=== PATIENT | female | born 1965 | race Caucasian/White ===

== ENCOUNTER 2020-04-15 15:16 | Outpatient (REF) | payer BC, SELFPAY ==
[2020-04-15 15:57] LABS: MANUAL DIFF FLAG NO
[2020-04-15 15:58] LABS: Basophils Absolute Auto 0.1 X10*3/uL (0.0-0.2); Basophils Percent Auto 0.7 % (0-2); Eosinophils Absolute Auto 0.2 X10*3/uL (0.0-0.4); Eosinophils Percent Auto 2.8 % (0-4); Hematocrit 41.1 % (37-47); Hemoglobin 13.3 g/dl (12.0-16.0); Imm Gran Abs Auto 0.04 X10*3/uL (0.00-0.03); Imm Gran Pct Auto 0.6 % (0.0-0.4); Lymphocytes Percent Auto 27.9 % (20-40); Mean Corpuscular HGB Conc 32.4 g/dl (31.0-35.0); Mean Corpuscular Hemoglobin 30.5 pg (27.0-33.0); Mean Corpuscular Volume 94.3 fL (80-98); Mean Platelet Volume 11.3 fL (9.4-12.3); Monocytes Absolute Auto 0.5 X10*3/uL (0.1-1.2); Neutrophils Absolute Auto 4.4 X10*3/uL (2.0-8.3); Platelet Count 271 X10*3/uL (160-400); Red Blood Count 4.36 X10*6/uL (4.20-5.50); Red Cell Distribution Width 12.9 % (11.0-16.0); White Blood Count 7.2 X10*3/uL (4.8-10.8)
[2020-04-15 16:34] LABS: Alanine Aminotransferase 26 U/L (0-31); Albumin Level 4.2 g/dL (3.5-5.0); Alkaline Phosphatase 116 U/L (39-117); Amylase 202 U/L (28-100); Aspartate Amino Transferase 15 U/L (5-31); Bilirubin Direct < 0.2 mg/dL (0.0-0.5); Bilirubin Total 0.2 mg/dL (0.0-1.0); Blood Urea Nitrogen 17 mg/dL (9-16); Estimated Glomerular Filt Rate > 60; Total Protein 7.3 g/dL (6.5-8.0)
[2020-04-15 16:54] LABS: Lipase 87 U/L (8-78)
== END 2020-04-15 15:17 | disposition home or self-care (01) ==
LOC: HO.LAB 15:16
PROVIDERS: PCP Family Medicine; Visit Provider Internal Medicine Gastroenterology
DX: R74.8 Abnormal levels of other serum enzymes (principal)
CPT/HCPCS: 36415; 80076; 82150; 82565; 83690; 84520; 85025

== ENCOUNTER 2020-05-17 08:22 | Outpatient (REF) | payer BC, SELFPAY ==
--- NOTE | 2020-05-17 08:26 | CT_ITS ---
EXAMINATION: CT ABDOMEN AND PELVIS WITH CONTRAST CLINICAL INFORMATION: Epigastric pain. Elevated lipase. COMPARISON: Previous abdominal ultrasound July [address] of the abdomen April 2006 TECHNIQUE: Multidetector volumetric images were obtained from the superior aspect of the liver through the pubic symphysis following administration 85 mL ofOmnipaque 350 intravenous contrast. Sagittal and coronal reformatted images were obtained on the technologist's workstation. Oral contrast: Yes This CT examination was performed using dose optimization techniques as appropriate, variously including the following: *Automated exposure control *Adjustment of mA and/or kV according to patient size (this includes techniques or standardized protocols for targeted exams where dose is matched to indication/reason for exam; i.e. extremities or head) *Use of iterative reconstruction technique DLP: 563 mGy-cm FINDINGS: LUNG BASES: The visualized lung bases are unremarkable. LIVER, GALLBLADDER, AND BILIARY TREE: The liver is low in attenuation suggestive of fatty infiltration. No focal liver lesion is seen. The gallbladder has been removed. There is no biliary duct dilatation. PANCREAS: Unremarkable. SPLEEN: Unremarkable. ADRENAL GLANDS: Unremarkable. KIDNEYS AND URETERS: The kidneys are normal in size, shape, and attenuation. No hydronephrosis, hydroureter, or calculi seen. No perinephric stranding. BLADDER: Not optimally distended but appears unremarkable. GASTROINTESTINAL TRACT: There is mild diverticulosis of the colon. No evidence of diverticulitis is seen. The small and large bowel are otherwise unremarkable. The appendix is unremarkable. The stomach is unremarkable. ABDOMINAL WALL: There is a small umbilical hernia containing fat. LYMPH NODES: Normal. VASCULAR: There are bilateral lower extremity and varices. PELVIC VISCERA: Unremarkable. OSSEOUS STRUCTURES: Unremarkable. CT/CT abdomen pelvis w con IMPRESSION: Normal-appearing pancreas. Mild diverticulosis of the colon. No evidence of diverticulitis. Fatty liver.
[2020-05-17] MEDS: iohexoL 350 MG/ML 100 ML INFUS..BTL 85 ML IV (11:18)
[2020-05-17] MEDS: Barium Sulfate Oral (Mocha) 450 ML ORAL.SUSP 900 ML PO (11:19)
== END 2020-05-17 08:23 | disposition home or self-care (01) ==
LOC: HO.CT 08:22
PROVIDERS: Visit Provider Internal Medicine Gastroenterology
DX: R10.13 Epigastric pain (principal); R74.8 Abnormal levels of other serum enzymes
CPT/HCPCS: 74177

== ENCOUNTER 2020-10-28 17:28 | Outpatient (REF) | payer BC, SELFPAY ==
--- NOTE | ~2020-10-28 | XR_ITS ---
EXAMINATION: XR RIBS, LEFT CLINICAL INFORMATION: Pain COMPARISON: Previous chest x-ray July 2017 TECHNIQUE: 3 views of the left ribs were obtained. FINDINGS: No rib fracture bone lesion is seen. The left lung is clear. There is no left pleural effusion or pneumothorax. There are degenerative changes of the thoracic spine. XR/XR ribs LT 2V IMPRESSION: Unremarkable left ribs.
== END 2020-10-28 17:29 | disposition home or self-care (01) ==
LOC: HO.XRAY 17:28
PROVIDERS: PCP Family Medicine; Visit Provider Family Medicine
DX: R07.81 Pleurodynia (principal)
CPT/HCPCS: 71100

== ENCOUNTER 2021-04-01 10:03 | Day surgery (SDC) | payer BC, SELFPAY ==
[2021-03-31 08:01] VITALS: BMI 32.8
--- NOTE | 2021-03-31 08:59 | HO.ANESPROP2 ---
Documented by User: Jenniffer Matt NP 03/31/21 09:00 HPI - Anesthesia Eval Consult details Narrative: 56yo F for Colonoscopy PMFSH Past Medical History Medical History Back pain GERD (gastroesophageal reflux disease) Hematuria Hiatal hernia Peptic ulcer disease Sigmoid diverticulosis Type 2 diabetes mellitus Surgical History Surgical History History of esophagogastroduodenoscopy (EGD) Hx of colonoscopy Hx of tubal ligation Social History Social History Patient Tobacco Use Status: Never used Tobacco Use of substances other than those prescribed or required for medical reasons: No Are you DNR?: No Advance Directives: No Advance Directives Information Provided: Yes Advance Directives on File: No Recently lost weight without trying: No Nutrition Risks: No Nutritional Risk Meds Allergies Allergy/AdvReac Type Severity Reaction Status Date / Time No Known Allergies Allergy Unverified 04/01/20 15:47 Pt states no known food and Allergy Unknown Uncoded 06/11/18 00:00 wv Home Medications Medication Instructions Recorded Confirmed Last Taken Type Naprosyn PO BID 03/31/21 Unknown History atorvastatin 40 mg tablet 1 tab PO DAILY 03/31/21 03/31/21 Unknown History fluoxetine 20 mg capsule 2 cap PO QAM 03/31/21 03/31/21 Unknown History hydroxyzine HCl 25 mg tablet 25 mg PO TID PRN 03/31/21 03/31/21 Unknown History ibuprofen 800 mg tablet 1 tab PO BID PRN 03/31/21 03/31/21 Unknown History metformin 500 mg tablet,extended 1 tab PO DAILY 03/31/21 03/31/21 Unknown History release 24 hr omeprazole 20 mg capsule,delayed 20 mg PO BID 03/31/21 03/31/21 Unknown History release Exam Exam Date and Time: March 31, 2021 0859 Height,Weight and Vital Signs: Height 4 ft 11.75 in Weight 75.75 kg Assessment and Plan Assessment Anesthesia Assessment: Chart Reviewed Documented by User: Anel Owusu MD 04/01/21 11:37 PMFSH Past Medical History Medical History Back pain GERD (gastroesophageal reflux disease) Hematuria Hiatal hernia Peptic ulcer disease Sigmoid diverticulosis Type 2 diabetes mellitus Surgical History Surgical History History of esophagogastroduodenoscopy (EGD) Hx of colonoscopy Hx of tubal ligation History of Problems with Anesthesia: No Social History Social History Patient Tobacco Use Status: Never used Tobacco Use of substances other than those prescribed or required for medical reasons: No Are you DNR?: No Advance Directives: No Advance Directives Information Provided: Yes Advance Directives on File: No Recently lost weight without trying: No Nutrition Risks: No Nutritional Risk Meds Allergies Allergy/AdvReac Type Severity Reaction Status Date / Time No Known Allergies Allergy Unverified 04/01/20 15:47 Pt states no known food and Allergy Unknown Uncoded 06/11/18 00:00 wv Home Medications Medication Instructions Recorded Confirmed Last Taken Type Naprosyn PO BID 03/31/21 Unknown History atorvastatin 40 mg tablet 1 tab PO DAILY 03/31/21 03/31/21 Unknown History fluoxetine 20 mg capsule 2 cap PO QAM 03/31/21 03/31/21 Unknown History hydroxyzine HCl 25 mg tablet 25 mg PO TID PRN 03/31/21 03/31/21 Unknown History ibuprofen 800 mg tablet 1 tab PO BID PRN 03/31/21 03/31/21 Unknown History metformin 500 mg tablet,extended 1 tab PO DAILY 03/31/21 03/31/21 Unknown History release 24 hr omeprazole 20 mg capsule,delayed 20 mg PO BID 03/31/21 03/31/21 Unknown History release Exam Airway Mallampati Class: II TM Dist: >3cm Neck ROM: Full Loose/Missing/Broken Teeth: No Heart: RRR Lungs: CTA Assessment and Plan Assessment Anesthesia Assessment: Anesthesia Plan Discussed Final Anesthetic Review History of Problems with Anesthesia: No NPO: Yes ASA Class: II Final Preanesthetic Review: Meds/Allgs Chart Reviewed, Consent Obtained/Reviewed and Anes Risks/Benef Reviewed Patient Risk: Low Procedure Risk: Low Anesthetic Plan Anesthetic Plan: MAC: Disposition: Standard PACU
[2021-04-01 10:16] VITALS: BMI 34.2
[2021-04-01 10:20] VITALS: BP 109/65; PULSE 67; RESP 16; TEMP 36.4; O2SAT 97
[2021-04-01] MEDS: Lactated Ringers 1,000 ML 100 ML IVCONT (10:31)
[2021-04-01 10:39] LABS: Glucose, Whole Blood 95 mg/dL (60-115)
--- NOTE | 2021-04-01 11:20 | MHC.SHP ---
Pre-Procedural Eval Section A Date of Service: 04/01/21 The patient is an INPATIENT: No Changes since office visit: No Cold of Flu in the past 2 weeks, No New Medical Problems, No Changes in Medication and No Patient answered all questions The History & Physical has been completed within 30 days and I have reviewed it.: Yes Section B Chief Complaint: Family hx of colon cancer, Screening Allergies: Allergies Allergy/AdvReac Type Severity Reaction Status Date / Time No Known Allergies Allergy Unverified 04/01/20 15:47 Pt states no known food and Allergy Unknown Uncoded 06/11/18 00:00 me Plan I have reviewed the history and physical and performed a pertinent physical examination on my patient. No changes have occurred unless specified.
[2021-04-01 11:53] VITALS: BP 109/70; PULSE 72; RESP 18; TEMP 36.2; O2SAT 100
--- NOTE | 2021-04-01 12:00 | PM.OP ---
Brief Operative Note Date of Service: 04/01/21 Pre-op diagnosis: screening Post-op diagnosis: same (normal) Procedure: colonosocpy Surgeon: Krish Bowman Anesthesia: MAC Was an Oceanographic Meteorologist used for this Procedure?: No Estimated blood loss (mL): 0 Pathology: none sent Condition: stable Disposition: PACU
[2021-04-01 12:10] VITALS: BP 132/63; PULSE 63; RESP 16; TEMP 5372.2; TEMP 9702; O2SAT 99
--- NOTE | 2021-04-01 18:06 | OP_ITS ---
SURGEON: Krish Bowman MD INDICATIONS: Colon cancer screening and family history of colon cancer. PREOPERATIVE DIAGNOSIS: POSTOPERATIVE DIAGNOSIS: PROCEDURE PERFORMED: Colonoscopy to the terminal ileum. ESTIMATED BLOOD LOSS: COMPLICATIONS: ANESTHESIA: ASSISTANTS: SPECIMENS: MEDICATIONS: Monitored anesthesia care. DESCRIPTION OF PROCEDURE: History and physical performed. The risks and benefits of the procedure were explained to the patient. Informed consent was obtained. The patient was placed in the left lateral decubitus position. A digital rectal exam was performed and was found to be normal. The Olympus pediatric video colonoscope was introduced into the rectum and advanced to the cecum without difficulty. The cecum was identified by transillumination, palpation, and identification of the ileocecal valve. Examination was performed and the scope was removed. She tolerated the procedure well and was taken to recovery area in stable condition. FINDINGS: The terminal ileum was examined and appeared normal. The visualized colonic mucosa was normal. The quality of the prep was fair with some liquid and semi-formed stool limiting the examination of the right colon and sigmoid colon. This was washed and suctioned. No polyps were identified. Retroflexed examination was normal. IMPRESSION: Normal colonoscopy. RECOMMENDATIONS: 1. Follow up as needed. 2. Repeat colonoscopy is recommended in 5 years because of family history. MD HERBERT Lawson/JENYL / [id number]
== END 2021-04-01 13:10 | disposition home or self-care (01) ==
PROVIDERS: PCP Family Medicine; Visit Provider Internal Medicine Gastroenterology
PROC: 0DJD8ZZ Inspection of Lower Intestinal Tract, Via Natural or Artificial Opening Endoscopic (ICD-10-PCS; CPT 45378; principal; 2021-04-01 11:30)
DX: Z12.11 Encounter for screening for malignant neoplasm of colon (principal); Z80.0 Family history of malignant neoplasm of digestive organs; R94.5 Abnormal results of liver function studies; K57.30 Diverticulosis of large intestine without perforation or abscess without bleeding; K21.9 Gastro-esophageal reflux disease without esophagitis; K27.9 Peptic ulcer, site unspecified, unspecified as acute or chronic, without hemorrhage or perforation; K76.0 Fatty (change of) liver, not elsewhere classified; E11.9 Type 2 diabetes mellitus without complications; Z79.84 Long term (current) use of oral hypoglycemic drugs; Z79.899 Other long term (current) drug therapy; Z79.1 Long term (current) use of non-steroidal anti-inflammatories (NSAID)
CPT/HCPCS: 45378; 82947

== ENCOUNTER 2021-07-27 16:15 | Outpatient (REF) | payer BC, SELFPAY ==
--- NOTE | ~2021-07-27 | US_ITS ---
EXAMINATION: US VENOUS ULTRASOUND WITH DOPPLER LOWER EXTREMITY, RIGHT CLINICAL INFORMATION: Pain and swelling right leg, rule out DVT COMPARISON: None TECHNIQUE: Ultrasound of the deep veins is performed from the hip to the calf with compression sonography and color and pulse Doppler assessment. Spectral analysis with color-flow imaging is performed. FINDINGS: There is normal venous compression and respiratory variation and augmented flow. The visualized common femoral vein, superficial femoral vein, profunda femoral vein, popliteal vein, and the trifurcation region shows no evidence of deep venous thrombosis. There is no significant popliteal fossa cyst. There are fairly extensive superficial varices throughout the right leg off the great saphenous vein without evidence of superficial thrombophlebitis. US/US venous duplex LE RT IMPRESSION: No DVT demonstrated in the right lower extremity. Extensive varicosities at the great saphenous vein without evidence of superficial thrombophlebitis.
== END 2021-07-27 16:16 | disposition home or self-care (01) ==
LOC: HO.US 16:15
PROVIDERS: PCP Family Medicine; Visit Provider Nurse Practitioner Family
DX: M79.89 Other specified soft tissue disorders (principal)
CPT/HCPCS: 93971

== ENCOUNTER 2021-07-28 16:14 | Outpatient (REF) | payer BC, SELFPAY ==
[2021-07-28 17:59] LABS: Blood Urea Nitrogen 20 mg/dL (9-16); Estimated Glomerular Filt Rate > 60
== END 2021-07-28 16:15 | disposition home or self-care (01) ==
LOC: HO.LAB 16:14
PROVIDERS: Absent Provider Family Medicine; PCP Family Medicine; Visit Provider Family Medicine
DX: R79.89 Other specified abnormal findings of blood chemistry (principal)
CPT/HCPCS: 36415; 82565; 84520

== ENCOUNTER 2021-07-29 08:36 | Outpatient (REF) | payer BC, SELFPAY ==
--- NOTE | ~2021-07-29 | CT_ITS ---
EXAMINATION: CT ANGIOGRAM ABDOMEN AND PELVIS CLINICAL INFORMATION: Right leg swelling COMPARISON: CT abdomen and pelvis 05/17/2020, venous ultrasound 07/27/2019 TECHNIQUE: Multiple axial images were obtained through the abdomen and pelvis following the administration of 100 mL of Omnipaque 350 intravenous contrast. Images were reviewed on a dedicated 3-D workstation. This CT examination was performed using dose optimization techniques as appropriate, variously including the following: *Automated exposure control *Adjustment of mA and/or kV according to patient size (this includes techniques or standardized protocols for targeted exams where dose is matched to indication/reason for exam; i.e. extremities or head) *Use of iterative reconstruction technique DLP: 278 mGy-cm FINDINGS: VASCULAR: The distal descending thoracic aorta appears normal. The abdominal aorta and iliofemoral vessels appear normal. There is a mild arcuate celiac stenosis. The SMA is widely patent as is the HARDY. Single normal-appearing renal arteries are present bilaterally. Although not opacified by contrast, the femoral veins and iliac veins and IVC appear unremarkable. No mass causing retroperitoneal venous compression is seen. As noted on the patient's prior ultrasound, the great saphenous vein is dilated and varices are present. I suspect this most likely refluxes. Similar, but less marked findings are present in the left groin. Findings are unchanged when compared to 05/17/2020 CT scan. NONVASCULAR: Lung Bases: The visualized lung bases are unremarkable. Liver, Gallbladder and Biliary Tree: The liver is normal in size and shape but continues to demonstrate evidence of hepatic steatosis. No focal hepatic lesion or biliary ductal dilatation is present. Status post cholecystectomy. Pancreas: Unremarkable. Spleen: Unremarkable. Adrenal Glands: Unremarkable. Kidneys and Ureters: The kidneys are normal in size, shape, and attenuation. No hydronephrosis, hydroureter, or calculi seen. No perinephric stranding. Bladder: Unremarkable. Gastrointestinal Tract: The small and large bowel are unremarkable. The appendix is unremarkable. Abdominal Wall: No significant hernia is appreciated. Lymph Nodes: No retroperitoneal lymphadenopathy. Pelvic Viscera: An anteverted uterus is present. An abnormal adnexal mass is not seen. No free intraperitoneal fluid is present. Osseous Structures: Unremarkable. CT/CT angio abdomen pelvis IMPRESSION: 1. A retroperitoneal/abdominal/pelvic mass causing compression to produce right lower extremity swelling is not seen. The great saphenous vein is enlarged and most likely demonstrates reflux. 2. Incidental note made of hepatic steatosis and cholecystectomy. Fleischner criteria was followed.
[2021-07-29] MEDS: iohexoL 350 MG/ML 100 ML INFUS..BTL 85 ML IV (09:10)
== END 2021-07-29 08:37 | disposition home or self-care (01) ==
LOC: HO.CT 08:36
PROVIDERS: PCP Family Medicine; Visit Provider Family Medicine
DX: M79.89 Other specified soft tissue disorders (principal); R79.89 Other specified abnormal findings of blood chemistry
CPT/HCPCS: 74174; Q9967

== ENCOUNTER 2022-03-23 07:47 | Outpatient (REF) | payer BC, SELFPAY ==
[2022-03-23 07:55] LABS: MANUAL DIFF FLAG NO
[2022-03-23 08:54] LABS: Basophils Percent Auto 0.5 % (0-2); Eosinophils Absolute Auto 0.2 X10*3/uL (0.0-0.4); Hematocrit 39.8 % (37.0-47.0); Hemoglobin 13.1 g/dl (12.0-16.0); Imm Gran Abs Auto 0.03 X10*3/uL (0.00-0.03); Imm Gran Pct Auto 0.5 % (0.0-0.4); Lymphocytes Absolute Auto 1.7 X10*3/uL (1.2-4.9); Lymphocytes Percent Auto 30.1 % (20-40); Mean Corpuscular HGB Conc 32.9 g/dl (31.0-35.0); Mean Corpuscular Hemoglobin 30.4 pg (27.0-33.0); Mean Corpuscular Volume 92.3 fL (80.0-98.0); Mean Platelet Volume 11.9 fL (9.4-12.3); Monocytes Absolute Auto 0.4 X10*3/uL (0.1-1.2); Monocytes Percent Auto 7.4 % (2-11); Neutrophils Absolute Auto 3.3 x10*3/uL (2.0-8.3); Neutrophils Percent Auto 58.5 % (45-73); Platelet Count 237 X10*3/uL (160-400); Red Blood Count 4.31 X10*6/uL (4.20-5.50); Red Cell Distribution Width 12.8 % (11.0-16.0); White Blood Count 5.7 X10*3/uL (4.8-10.8)
[2022-03-23 09:51] LABS: Alanine Aminotransferase 22 U/L (0-31); Albumin Level 3.9 g/dL (3.5-5.0); Alkaline Phosphatase 128 U/L (39-117); Anion Gap 16 (12-20); Aspartate Amino Transferase 13 U/L (5-31); Bilirubin Total 0.4 mg/dL (0.0-1.0); Blood Urea Nitrogen 14 mg/dL (9-16); Carbon Dioxide 24 mmol/L (22-29); Chloride 107 mmol/L (96-108); Cholesterol 126 mg/dL; Estimated Glomerular Filt Rate > 60; Glucose Random 229 mg/dL (60-115); HDL Cholesterol 44 mg/dL; LDL Cholesterol Calculated 57 mg/dl; Potassium 4.8 mmol/L (3.3-5.1); Sodium 142 mmol/L (135-145); Triglycerides 125 mg/dL
[2022-03-23 09:54] LABS: Creatinine Urine 136.48 mg/dL; Microalbum/Creatinine Ratio Ur 7.3 ug/mg cr
== END 2022-03-23 07:48 | disposition home or self-care (01) ==
LOC: HO.LAB 07:47
PROVIDERS: PCP Family Medicine; Visit Provider Family Medicine
DX: E11.9 Type 2 diabetes mellitus without complications (principal)
CPT/HCPCS: 36415; 80053; 80061; 82043; 85025

== ENCOUNTER 2022-08-08 11:12 | Outpatient (REF) | payer MEDICAID, SELFPAY ==
--- NOTE | ~2022-08-08 | MM_ITS ---
EXAMINATION: MM SCREENING DIGITAL BREAST TOMOSYNTHESIS, BILATERAL CLINICAL INFORMATION: Screening. Asymptomatic. The lifetime risk of breast cancer based on the Tyrer-Cuzick Model is 9%. COMPARISON: Mammography: April 02, 2020 and studies dating back to March 08, 2016 TECHNIQUE: Digital breast tomosynthesis is performed in both the craniocaudal and mediolateral oblique views along with computer-aided detection (CAD). Synthesized 2D images are generated from the tomosynthesis. FINDINGS: The breasts are almost entirely fatty (ACR BI-RADS breast composition Category a). There are no significant masses, abnormal calcifications, or other abnormalities. MM/MM tomosynthesis screening BI IMPRESSION: No significant changes from prior exam. ASSESSMENT: BI-RADS 1: Negative RECOMMENDATION: Routine annual mammography screening. This patient's information was entered into a reminder system with a target due date for their next mammogram.
== END 2022-08-08 11:13 | disposition home or self-care (01) ==
LOC: HO.MAMMO 11:12
PROVIDERS: PCP Family Medicine; Visit Provider Family Medicine
DX: Z12.31 Encounter for screening mammogram for malignant neoplasm of breast (principal)
CPT/HCPCS: 77063; 77067

== ENCOUNTER 2023-04-09 08:26 | Outpatient (REF) | payer MEDICAID, SELFPAY ==
[2023-04-09 12:43] LABS: Cholesterol 143 mg/dL (<200); HDL Cholesterol 52 mg/dL (>40); LDL Cholesterol Calculated 72 mg/dL (<100); Triglycerides 98 mg/dL (<150)
[2023-04-09 13:14] LABS: Creatinine Urine 181.16 mg/dL; Microalbum/Creatinine Ratio Ur 4.9 ug/mg cr (<30)
== END 2023-04-09 08:27 | disposition home or self-care (01) ==
LOC: HO.HHCL 08:26
PROVIDERS: Visit Provider Family Medicine
DX: E11.9 Type 2 diabetes mellitus without complications (principal)
CPT/HCPCS: 36415; 80061; 82043; 82570

== ENCOUNTER 2023-05-04 09:05 | Outpatient (REF) | payer MEDICAID, SELFPAY ==
[2023-05-04 10:13] LABS: Alanine Aminotransferase 20 U/L (0-31); Alkaline Phosphatase 120 U/L (39-117); Aspartate Amino Transferase 13 U/L (5-31); Bilirubin Direct 0.2 mg/dL (0.0-0.5); Bilirubin Total 0.4 mg/dL (0.0-1.0); Total Protein 7.2 g/dL (6.5-8.0)
== END 2023-05-04 09:06 | disposition home or self-care (01) ==
LOC: HO.LAB 09:05
PROVIDERS: PCP Family Medicine; Visit Provider Family Medicine
DX: Z13.220 Encounter for screening for lipoid disorders (principal)
CPT/HCPCS: 36415; 80076

== ENCOUNTER 2024-02-12 10:10 | Outpatient (REF) | payer MEDICAID, SELFPAY | END 2024-02-12 10:11 | disposition home or self-care (01) | LOC: HO.MAMMO 10:10 | PROVIDERS: PCP Family Medicine; Visit Provider Family Medicine | DX: Z12.31 Encounter for screening mammogram for malignant neoplasm of breast (principal) | CPT/HCPCS: 77063; 77067 ==

== ENCOUNTER → 2024-02-12 10:45 | Outpatient (BNV) | payer MEDICAID, SELFPAY | PROVIDERS: PCP Family Medicine; Visit Provider Radiology Diagnostic Radiology | DX: Z12.31 Encounter for screening mammogram for malignant neoplasm of breast (principal) | CPT/HCPCS: 77063; 77067 ==

== ENCOUNTER 2024-02-29 13:32 | Emergency (ER) | payer MEDICAID, SELFPAY ==
--- NOTE | ~2024-02-29 | CT_ITS ---
EXAMINATION: CT HEAD WITHOUT CONTRAST CLINICAL INFORMATION: Headache. COMPARISON: None available. TECHNIQUE: Contiguous axial imaging was performed from the skull base to vertex without intravenous administration of contrast. This CT examination was performed using dose optimization techniques as appropriate, variously including the following: *Automated exposure control *Adjustment of mA and/or kV according to patient size (this includes techniques or standardized protocols for targeted exams where dose is matched to indication/reason for exam; i.e. extremities or head) *Use of iterative reconstruction technique DLP: 609 mGy-cm FINDINGS: There is no acute intracranial hemorrhage. There is no evidence of acute/subacute cerebral or cerebellar infarction. There is no midline shift or mass effect. There is no extra-axial fluid collection. The ventricles are normal in size. The orbits are symmetric and within normal limits. The visualized paranasal sinuses and mastoid air cells are clear. CT/CT head/brain wo IV con IMPRESSION: No acute intracranial pathology.
[2024-02-29 13:50] VITALS: BP 114/71; PULSE 83; RESP 18; TEMP 36.6; O2SAT 97; BMI 36.2
[2024-02-29 14:28] LABS: MANUAL DIFF FLAG NO
[2024-02-29 14:33] LABS: Basophils Percent Auto 0.6 % (0-2); Eosinophils Absolute Auto 0.1 X10*3/uL (0.0-0.4); Eosinophils Percent Auto 1.4 % (0-4); Hemoglobin 12.8 g/dl (12.0-16.0); Imm Gran Abs Auto 0.02 X10*3/uL (0.00-0.03); Imm Gran Pct Auto 0.3 % (0.0-0.4); Lymphocytes Absolute Auto 1.9 X10*3/uL (1.2-4.9); Lymphocytes Percent Auto 28.5 % (20-40); Mean Corpuscular HGB Conc 33.7 g/dl (31.0-35.0); Mean Corpuscular Hemoglobin 30.8 pg (27.0-33.0); Mean Corpuscular Volume 91.6 fL (80.0-98.0); Mean Platelet Volume 11.2 fL (9.4-12.3); Monocytes Absolute Auto 0.4 X10*3/uL (0.1-1.2); Monocytes Percent Auto 6.6 % (2-11); Neutrophils Absolute Auto 4.1 x10*3/uL (2.0-8.3); Neutrophils Percent Auto 62.6 % (45-73); Platelet Count 242 X10*3/uL (160-400); Red Blood Count 4.15 X10*6/uL (4.20-5.50); Red Cell Distribution Width 13.4 % (11.0-16.0); White Blood Count 6.5 X10*3/uL (4.8-10.8)
[2024-02-29 15:00] LABS: Alanine Aminotransferase 15 U/L (0-31); Albumin Level 3.9 g/dL (3.5-5.0); Alkaline Phosphatase 131 U/L (39-117); Anion Gap 14 (12-20); Aspartate Amino Transferase 9 U/L (5-31); Bilirubin Direct 0.1 mg/dL (0.0-0.5); Bilirubin Total 0.4 mg/dL (0.0-1.0); Blood Urea Nitrogen 15 mg/dL (9-16); Calcium 9.1 mg/dL (8.4-10.2); Carbon Dioxide 22 mmol/L (22-29); Chloride 112 mmol/L (96-108); Creatinine Clr Calc Pharmacy 76.5; Estimated Glomerular Filt Rate > 60; Glucose Random 114 mg/dL (60-115); Potassium 3.6 mmol/L (3.3-5.1); Sodium 144 mmol/L (135-145)
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
[2024-02-29 16:49] VITALS: BP 119/72; PULSE 84; RESP 18; TEMP 36.6; O2SAT 99
[2024-02-29 17:25] LABS: Appearance Urine Clear; Color Urine Yellow; Glucose Urine UA Negative (Negative); Leukocyte Esterase Urine Negative (Negative); Nitrite Urine Negative (Negative); PH 6.5 (5.0-9.0); Urine Blood Negative (Negative); Urine Ketones Trace mg/dL (Negative); Urine Protein Negative (Neg-Trace)
[2024-02-29 17:55] VITALS: BP 119/52; PULSE 76; RESP 18; TEMP 36.7; O2SAT 98
== END 2024-02-29 17:57 | disposition home or self-care (01) ==
PROVIDERS: Emergency Provider Emergency Medicine; PCP Family Medicine
DX: R51.9 Headache, unspecified (principal); E11.9 Type 2 diabetes mellitus without complications; E78.5 Hyperlipidemia, unspecified; Z79.02 Long term (current) use of antithrombotics/antiplatelets; Z79.899 Other long term (current) drug therapy; Z79.84 Long term (current) use of oral hypoglycemic drugs
CPT/HCPCS: 36415; 70450; 80053; 81003; 82248; 85025; 99284

== ENCOUNTER 2024-03-26 07:51 | Outpatient (REF) | payer MEDICAID, SELFPAY ==
[2024-03-26 09:48] LABS: Creatinine Urine 215.87 mg/dL; Microalbum/Creatinine Ratio Ur 8.3 ug/mg cr (<30)
[2024-03-26 09:53] LABS: Alanine Aminotransferase 18 U/L (0-31); Alkaline Phosphatase 136 U/L (39-117); Anion Gap 12 (12-20); Aspartate Amino Transferase 10 U/L (5-31); Bilirubin Direct 0.2 mg/dL (0.0-0.5); Bilirubin Total 0.7 mg/dL (0.0-1.0); Blood Urea Nitrogen 15 mg/dL (9-16); Calcium 9.6 mg/dL (8.4-10.2); Carbon Dioxide 28 mmol/L (22-29); Chloride 108 mmol/L (96-108); Estimated Glomerular Filt Rate > 60; Glucose Random 171 mg/dL (60-115); Sodium 144 mmol/L (135-145); Total Protein 7.3 g/dL (6.5-8.0)
[2024-03-26 10:11] LABS: TSH reflex Free T4 2.78 uIU/mL (0.32-4.0); Vitamin D 25-OH Total 20.7 ng/mL (>30)
[2024-03-28 10:18] LABS: RPR Rapid Plasma Reagin NON-REACTIVE (NON-REACTIVE)
== END 2024-03-26 07:52 | disposition home or self-care (01) ==
LOC: HO.LAB 07:51
PROVIDERS: PCP Family Medicine; Visit Provider Family Medicine
DX: E11.9 Type 2 diabetes mellitus without complications (principal); R41.3 Other amnesia
CPT/HCPCS: 36415; 80048; 80076; 82043; 82306; 82570; 84443; 86592

== ENCOUNTER 2024-08-22 07:10 | Outpatient (REF) | payer MEDICAID, SELFPAY ==
--- OUTSIDE RECORDS SUMMARY | 2024-08-22 07:14 | XMS_ITS | Patient Health Record ---
Author Organization [facility] Address [address] [place] [address] Care Team Providers Care Plastic Maker Name Role Phone Anu Shultz MD Primary Care Provider Krish Moura Jr Unavailable ALLERGIES No Known Allergies REASON FOR REFERRAL No Information MEDICATIONS Medication SIG (Take, Route, Frequency, Duration) Notes Start Date End Date Status traZODone HCl Active MiraLax (colon prep) 17 GM/SCOOP mixed with Gatorade or Crystal Light Orally begin at 5:00 p.m. the day before the procedure for 1 day 03/29/2021 Active Omeprazole 40 MG 1 capsule 30 minutes before morning meal Orally Once a day Active Fluoxetine Active hydrOXYzine HCl 25 MG 1 tablet as needed Orally three times a day Active metFORMIN HCl ER 500 MG Oral for 90 Active Omeprazole 40 MG 1 capsule 30 minutes before morning meal Orally Twice a day for 30 day(s) 04/15/2020 Active Ibuprofen 800 MG Oral for 90 A ctive Atorvastatin Calcium 40 MG Oral for 90 Active IMMUNIZATIONS Vaccine Route Administration Date Status Comme nts Influenza Unknown 07/16/2020 Administered Influenza Unknown 04/15/2020 Refused SOCIAL HISTORY Sex Assigned At : Social History Observation Description Sex Assigned At Unknown Alcohol Screen Question Answer Notes Did you have a drink containing alcohol in the p ast year? No Points 0 Interpretation Negative PROBLEMS Problem Type ICD Code Onset Dates Problem Status W/U Status Risk SNOMED Code Notes Problem Colon cancer screening (Z12.11) Active confirmed 541963717 Problem Epigastric pain (R10.13) Active confirmed 97117128 Problem Gastroesophageal reflux disease without esophagitis (K21.9) Active confirmed 001657478 Problem Fatty liver (K76.0) Active confirmed 19 [id number] Problem Elevated lipase (R74.8) Active confirmed 416833331 PLAN OF TREATMENT Pending Test Test Name Order Date CT ABD & PELVIS WITH CONTRAST 04/15/2020 XR GI SERIES 02/01/2012 Future Test Test Name Order Date UPPER GI ENDOSCOPY 11/26/2015 COLONOSCOPY 11/26/2015 COLONOSCOPY 03/29/2021 Insurance Providers Payer Name Payer Address Payer Phone Subscriber Number Group Number Insured Name Patient Relationship to Insured Coverage Start Date Coverage End Date [facility] [address] [place], [place] [id number] BETTY ORTEZ Self - patient is the insured MEDICAL (GENERAL) HISTORY Medical History History ICD Code colonoscopy 03/08/16, screeni ng, sigmoid diverticulosis, five-year followup due to family history. peptic ulcer disease hematuria Back pain GERD, EGD 06/04/17, 2 cm hia bronson hernia, gastric biopsies positive for H. pylori, patient believes she was treated type II diabetes Surgical History Surgery Date(Month/Year) tubal ligation
[2024-08-22 07:47] LABS: Estimated Average Glucose 148 mg/dL; Hemoglobin A1C 172.9409 umol/L; Hemoglobin A1c % 6.8 % (<6.0); Total Hemoglobin (HGBA1C) 3431.4142 umol/L
[2024-08-22 08:10] LABS: Alanine Aminotransferase 26 U/L (0-31); Albumin Level 4.1 g/dL (3.5-5.0); Alkaline Phosphatase 129 U/L (39-117); Anion Gap 14 (12-20); Aspartate Amino Transferase 16 U/L (5-31); Bilirubin Direct 0.2 mg/dL (0.0-0.5); Bilirubin Total 0.5 mg/dL (0.0-1.0); Blood Urea Nitrogen 18 mg/dL (9-16); Calcium 9.6 mg/dL (8.4-10.2); Carbon Dioxide 25 mmol/L (22-29); Chloride 110 mmol/L (96-108); Cholesterol 141 mg/dL (<200); Estimated Glomerular Filt Rate > 60; Glucose Random 159 mg/dL (60-115); HDL Cholesterol 52 mg/dL (>40); LDL Cholesterol Calculated 65 mg/dL (<100); Potassium 4.8 mmol/L (3.3-5.1); Sodium 144 mmol/L (135-145); Total Protein 7.9 g/dL (6.5-8.0); Triglycerides 120 mg/dL (<150)
[2024-08-22 08:33] LABS: Creatinine Urine 215.37 mg/dL; Microalbum/Creatinine Ratio Ur 7.4 ug/mg cr (<30)
== END 2024-08-22 07:11 | disposition home or self-care (01) ==
LOC: HO.LAB 07:10
PROVIDERS: PCP Family Medicine; Visit Provider Family Medicine
DX: E11.9 Type 2 diabetes mellitus without complications (principal)
CPT/HCPCS: 36415; 80048; 80061; 80076; 82043; 82570; 83036